=== PATIENT | female | born 1955 | race Caucasian/White ===

== ENCOUNTER → 2025-02-14 12:56 | Outpatient (REF) | payer MEDICARE, SELFPAY | LOC: WOUND 12:56 | PROVIDERS: ATTENDING PHYSICIAN Surgery | DX: L97.512 Non-pressure chronic ulcer of other part of right foot with fat layer exposed (principal); I73.00 Raynaud's syndrome without gangrene | CPT/HCPCS: 11042; 99204 ==

== ENCOUNTER → 2025-02-14 13:16 | Outpatient (REF) | payer MEDICARE, BC, SELFPAY | LOC: RAD 13:16 | PROVIDERS: ATTENDING PHYSICIAN Surgery | DX: L97.512 Non-pressure chronic ulcer of other part of right foot with fat layer exposed (principal) | CPT/HCPCS: 73630 ==

== ENCOUNTER → 2025-02-28 13:46 | Outpatient (REF) | payer MEDICARE, BC, SELFPAY | LOC: WOUND 13:46 | PROVIDERS: ATTENDING PHYSICIAN Surgery | DX: L97.512 Non-pressure chronic ulcer of other part of right foot with fat layer exposed (principal); I73.00 Raynaud's syndrome without gangrene | CPT/HCPCS: 99213 ==

== ENCOUNTER → 2025-03-09 08:40 | Outpatient (REF) | payer MEDICARE, BC, SELFPAY | LOC: WOUND 08:40 | PROVIDERS: ATTENDING PHYSICIAN Surgery | DX: L97.512 Non-pressure chronic ulcer of other part of right foot with fat layer exposed (principal); I73.00 Raynaud's syndrome without gangrene | CPT/HCPCS: 99212 ==

== ENCOUNTER → 2025-03-21 13:51 | Outpatient (REF) | payer MEDICARE, OTHER, SELFPAY | LOC: WOUND 13:51 | PROVIDERS: ATTENDING PHYSICIAN Surgery | DX: L97.512 Non-pressure chronic ulcer of other part of right foot with fat layer exposed (principal); I73.00 Raynaud's syndrome without gangrene | CPT/HCPCS: 99212 ==

== ENCOUNTER → 2025-04-28 11:14 | Outpatient (REF) | payer MEDICARE, OTHER, SELFPAY | LOC: WOUND 11:14 | PROVIDERS: ATTENDING PHYSICIAN Surgery | DX: L97.512 Non-pressure chronic ulcer of other part of right foot with fat layer exposed (principal); I73.00 Raynaud's syndrome without gangrene | CPT/HCPCS: 99213 ==

== ENCOUNTER 2025-06-18 11:30 | Emergency (ER) | payer MEDICARE, BC, SELFPAY ==
[2025-06-18 11:34] VITALS: BP 140/97
[2025-06-18] MEDS: ATIVAN 1 MG PO (12:56)
--- NOTE | 2025-06-18 13:48 | ED.GENMED ---
History of Present Illness
General
Chief Complaint: Anxiety
Time Seen by Provider: 06/18/25 11:50
History of Present Illness
History of Present Illness:
ee MDM
Phy Exam
Physical Exam
Physical Exam:
see MDM
Course
Orders/Labs/Results
Orders:
Orders
06/18/25 11:36
EKG [Electrocardiogram (*1)] Urgent
Reason for Study: Shortness of Breath
EKG- Treatment ONCE
06/18/25 12:47
Lorazepam [Ativan] 1 mg PO NOW STA
Vital Signs
Initial and Last Documented VS:
Initial Vital Signs
Temp Pulse Resp BP Pulse Ox
37.1 C 85 17 140/97 97
06/18/25 11:34 06/18/25 11:34 06/18/25 11:34 06/18/25 11:34 06/18/25 11:34
Last Documented Vital Signs
Temp Pulse Resp BP Pulse Ox
37.1 C 78 16 110/57 100
06/18/25 11:34 06/18/25 14:06 06/18/25 14:06 06/18/25 14:06 06/18/25 14:06
MDM/Problems Addressed
MDM/Problems Addressed:
Note:
CHIEF COMPLAINT(S)
Anxiety and panic episodes, back pain, and symptoms related to Raynauds phenomenon.
HISTORY OF PRESENT ILLNESS
The patient is a 69-year-old female presenting with anxiety and panic episodes that have developed over the past week. She reports increased stress related to a scheduled section for her daughter, needing to look after large dogs, and
upcoming travel. These stressors have exacerbated her chronic back pain and Raynauds phenomenon, the latter of which affects her toe. She describes the anxiety episodes as feeling panicked and unable to breathe, stating, 'I never have this before in
my life.' The patient reports taking Percocet, typically twice daily, for back pain but sometimes increases to three times during severe episodes. She is concerned about traveling on the medication and being able to function. The Raynauds phenomenon
is marked by pallor of the affected toe and a wound diagnosed as related to an ingrown nail. The patient is currently applying nitroglycerin ointment. She denies chest pain but mentions shortness of breath and is currently taking amlodipine for her
Raynauds. The patient is not interested in further diagnostic tests for cardiac issues at this time, as she believes her symptoms are related to anxiety and stress.
she is not suicidal
CHRONIC MEDICAL CONDITIONS SIGNIFICANTLY AFFECTING CARE
Raynauds phenomenon, chronic back pain.
SOCIAL HISTORY
The patient denies use of tobacco or illicit drugs but admits to alcohol use. She recently relocated from [place] and lacks a local primary care physician.
MEDICATIONS
The patient is currently taking Percocet for back pain, amlodipine for Raynauds phenomenon, and is on hormone replacement therapy.
REVIEW OF SYSTEMS
- Cardiovascular: No chest pain reported.
- Respiratory: Shortness of breath associated with anxiety episodes.
- Psychological: Anxiety and panic episodes as primary concerns.
PHYSICAL EXAM
GENERAL: Alert ,tearful when she speaks about her stress; othewrise no distress
EYE: pupils equal and reactive
NECK: Supple
ENT: o/p clr, mmm.
CARDIAC: Regular rate and rhythm .
LUNGS: Clear breath sounds bilaterally, no acute respiratory distress, no wheezes/rales/rhonchi
ABDOMEN: Soft, without focal tenderness, no r/g, no cvat, normal bowel sounds
NEUROLOGICAL: Alert and oriented, no focal neuro deficits
SKIN: Warm and dry, skin intact.
i do not really appreciate R great toe pallor, it is warm and perfused
she does have ingrown R great toe nail with thickened skin no obiouvs paronychia
MUSCULOSKELETAL: no foot tendneress, normal pulse, warm;
PSYCH: depressed mood, anxious, nO SI
Nursing notes reviewed, and vital signs are reviewed.
PROBLEM LIST
Acute:
- Anxiety and panic episodes
- Exacerbation of Raynauds phenomenon
Chronic:
- Chronic back pain
PLAN
- Prescribe a limited supply of oral lorazepam for acute anxiety management with guidance to space usage from Percocet to prevent enhanced sedation.
- Continue current management with amlodipine and nitroglycerin ointment for Raynauds phenomenon.
- Referral to establish care with a local primary care provider and consider initiation of a long-term anxiolytic like fluoxetine.
- Recommend follow-up with a inventory specialist manager for further evaluation and management of the ingrown toenail and associated wound after her return.
- Advise avoiding the simultaneous use of sedatives such as Percocet and lorazepam.
DIFFERENTIAL DIAGNOSIS
The Differential Diagnosis includes, in no particular order and is not limited to:
- Generalized anxiety disorder
- Panic disorder
- Hyperthyroidism
- Pulmonary embolism
- Coronary artery disease
- Peripheral vascular disease
- Chronic pain syndrome
- Drug interaction or side effect
- Depressive disorder
- Adjustment disorder
69-year-old female with history of chronic back pain on opiates, Raynaud's syndrome presents for anxiety and panic going on for about a week, worse at night limiting her sleep. Patient says she is traveling tomorrow for the of her first
grandchild and will be out of town for 2 days, she has not seen her family in quite some time and because of this chronic back pain she is walking with a limp and she says she is worried about how it will look to her family. She also is stressed
about leaving her dogs. Patient has had some degree of chest tightness but is not overly short of breath. She is not having pleuritic chest pain. She came in because she specifically is asking for something for rescue anxiety while she is away.
She is aware that anxiety lytics can cause sedation. She also does not have a primary care doctor because she just moved here from [place]. Her rug underlay machine operator has been managing her Raynaud's flare and her right great toe along with ingrown
toenail, she did see a customs patrol officer who did a small I&D of the skin but did not remove the nail. He said if she continues to have pain and swelling she may need the nail cut down. She is post to see him in this week. She is also on a topical
antibiotic. She does not feel like it is looking any better but is not worse. Patient says that she feels like her right great toe has some pallor to the proximal phalanx of it. There is no significant pain, swelling, purple discoloration. She
is anxious and tearful but is not suicidal.
I did offer her some testing to be sure that her anxiety and panic/chest discomfort/shortness of breath was not ACS although it did not sound consistent with ACS, PE given her oral estrogen replacement therapy. Patient declined all testing. She
says she knows it is just anxiety. She is aware of the risks of declining this testing. She was given a dose of Ativan orally and observed. She feels better. I will give her a very short course just for rescue, she knows to space it out from the
Percocet.
*Pulse Oximetry
SaO2: 97
Oxygen Mode of Delivery: Room air
Patient hypoxic: no (97)
*Critical Care Note
Total Time (30-74mins, 75-104mins- exclusive of procedures): Not Applicable
ED Attending Note
-
Portions of this chart may have been created with voice recognition software.� Occasional wrong word or��sound alike� substitutions may have occurred due to the inherent limitations of voice recognition software.
Discharge Plan
Departure
Patient Disposition: Home (Routine Discharge)
Date of Disposition: 06/18/25
Time of Disposition: 14:00
Patient with high blood pressure during this ER visit?: Yes
Condition: Fair
Covid-19: Not Applicable
Discharge Problem:
Anxiety
Instructions: Anxiety, Adult (DC)
Prescriptions:
New
lorazepam [Ativan] 1 mg tablet
1 mg PO HS PRN (Reason: anxiety) Qty: 3 0RF
lorazepam [Ativan] 0.5 mg tablet
0.5 mg PO HS PRN (Reason: anxiety) Qty: 3 0RF
Referrals:
ILDA ROACH, [Family Provider, Internal Medicine]
Activity Restrictions/Additional Instructions:
YOUR SYMPTOMS SEEM TO BE ANXIETY/.STRESS RELATED
YOU SHOULD CALL FOR OUTPATIENT FOLLOW UP WITH ALEJANDRINA ALBERT
YOU COULD ALSO CONSIDER CALLING YOUR CONTINUITY WRITER TO SEE IF BASIL WOULD BE WILLING TO PRESCRIBE SOMETHING FOR ANXIETY FOR YOU
IN THE MEANTIME, A RESCUE YOU CAN USE A DOSE OF ATIVEN 0.5 mg
NEEDED
THIS IS SEDATING, DO NOT COMBINE WITH PERCOCET
RETURN FOR: SEVERE CHEST PAIN, SHORTNESS OF BREAHT, WORSENING TOE DISCOLORATION, SUICIDAL THOUGHTS OR ANY COCNERNS.
Interventions
Interventions:
*Risk Screen - Suicide Last Done: 06/18/25 11:34
*General Assessment Last Done: 06/18/25 11:34
*Neglect/Abuse Screening Last Done: 06/18/25 11:34
*ED COVID-19 Vaccine History Last Done: 06/18/25 11:35
*ED Influenza Vaccine History Last Done: 06/18/25 11:35
[facility] Fall Risk Assessment Tool Last Done: 06/18/25 11:49
*Nursing Disposition Last Done: 06/18/25 14:22
ED-Psychological Assessment Last Done: 06/18/25 11:50
Discharge Date and Time
Discharge Date/Time: 06/18/25 14:23
Print Language: BULGARIAN
[2025-06-18 14:06] VITALS: BP 110/57
== END 2025-06-18 14:23 | disposition home or self-care (01) ==
LOC: EMR 11:30
PROVIDERS: EMERGENCY PHYSICIAN Emergency Medicine; FAMILY PHYSICIAN Internal Medicine
DX: F41.9 Anxiety disorder, unspecified (principal); L60.0 Ingrowing nail; G89.29 Other chronic pain; I73.00 Raynaud's syndrome without gangrene; Z79.890 Hormone replacement therapy; Z79.899 Other long term (current) drug therapy
CPT/HCPCS: 99283; 93005

== ENCOUNTER → 2025-06-28 09:05 | Outpatient (REF) | payer MEDICARE, BC, SELFPAY | LOC: EMG 09:05 | PROVIDERS: ATTENDING PHYSICIAN Orthopaedic Surgery Orthopaedic Surgery of the Spine | DX: M48.062 Spinal stenosis, lumbar region with neurogenic claudication (principal); M54.14 Radiculopathy, thoracic region | CPT/HCPCS: 95886; 95911 ==

== ENCOUNTER → 2025-07-01 09:35 | Outpatient (REF) | payer MEDICARE, BC, SELFPAY | LOC: RAD 09:35 | PROVIDERS: ATTENDING PHYSICIAN Orthopaedic Surgery Orthopaedic Surgery of the Spine | DX: M48.062 Spinal stenosis, lumbar region with neurogenic claudication (principal) | CPT/HCPCS: 72131 ==

== ENCOUNTER → 2025-07-12 07:03 | Outpatient (REF) | payer MEDICARE, BC, SELFPAY | LOC: MRI 3T 07:03 | PROVIDERS: ATTENDING PHYSICIAN Orthopaedic Surgery Orthopaedic Surgery of the Spine | DX: M48.062 Spinal stenosis, lumbar region with neurogenic claudication (principal) | CPT/HCPCS: 72148 ==